=== PATIENT | male | born 1945 ===

== ENCOUNTER 2017-12-09 08:47 | Day surgery (SDC) | payer MEDICARE ==
[2017-11-27 08:08] VITALS: BMI 24.8
[2017-12-09] MEDS ORDERED: Propofol 10 mg/ml Inj (20 ML) ONE (09:59)
[2017-12-09] MEDS ORDERED: Midazolam 2 MG/2 ML VIAL ONE (10:00)
[2017-12-09] MEDS ORDERED: Bupivacaine 0.5% Inj(30mL) ONE (10:16)
[2017-12-09] MEDS ORDERED: Lidocaine 1% Inj (20ml) ONE (10:16)
[2017-12-09] MEDS ORDERED: Lidocaine 2% Inj (20ml) ONE (10:34)
[2017-12-09] MEDS ORDERED: HYDROmorphone 0.5 mg/0.5 ml ISec IVP PRN (11:14)
[2017-12-09] MEDS ORDERED: Lactated Ringer's 1,000 ML IV SCH (11:15)
--- NOTE | 2017-12-09 11:23 | PCM.SURG1 ---
Surgeon's Initial Post Op Note - Surgeon's Notes Surgeon: Dr. Resendiz Straightening Press Operator Helper: [place]ford PGY1 Type of Anesthesia: IV Sedation, Local Anesthesia Administered By: Dr. Zhu Pre-Operative Diagnosis: Right Back mass Operative Findings: Large Right upper back lipoma Post-Operative Diagnosis: same Operation Performed: Excision of right upper back lipoma Specimen/Specimens Removed: Right upper back lipoma Estimated Blood Loss: EBL {In ML}: 20 Blood Products Given: N/A Drains Used: No Drains Post-Op Condition: Good Date of Surgery/Procedure: 12/09/17 Time of Surgery/Procedure: 11:23
[2017-12-09 11:59] VITALS: RESP 20; TEMP 98
[2017-12-09 12:54] VITALS: BP 132/69; PULSE 70; O2SAT 94
--- NOTE | 2018-01-15 07:22 | OP ---
PROCEDURE DATE: 12/09/2017 He is admitted and operated on the same-day. SURGEON: Kael Resendiz MD SELVAGE MACHINE OPERATOR: Yefri Christina DO, PGY-1 COOK SUPERVISOR: Dr. Zhu. ANESTHESIA: MAC IV sedation-bupivacaine 0.5-lidocaine 1% equal amounts 60 mL mix, 30 mL utilized. PREOPERATIVE DIAGNOSES: A 10-cm mass of the posterior back on the right side, rule out lipoma. PREOPERATIVE DIAGNOSES: A 10-cm mass of the posterior back on the right side, rule out lipoma. PROCEDURE: 1. Excision of a 10-cm lipoma of the back. 2. Intermediate layered closure of 15 cm. 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 He is been referred by his private physician for removal of same and after explaining the risks, the benefits, the alternatives and their anticipated outcomes he signs the informed consent for the same day surgical procedure. OPERATIVE NOTE: The patient was brought to the operating room from the same day holding area. He is identified by his wrist band, undergoes appropriate time-out procedure and then is placed on the operative table in a supine manner. Following light intravenous analgesia and oxygenation monitoring with the patient in a right lateral Romero position, the back is then prepped with Hibiclens and chlorhexidine preparation and then aseptically draped. Field block infiltration utilizing the combination of lidocaine-bupivacaine was employed over the very large lesion in the back and incision made transversely with electrocoagulating current for hemostatic purposes. The lesion is felt in the subcutaneous space, adhesions were sharply lysed and additional infiltration employed where needed. Utilizing a blunt technique of freeing the lipoma, it is brought up into the incision and it is found to have a secondary lobulation approximately 50% the size of the first one attached firmly and these adhesions were sharply lysed with cautery at the depth of the wound. The specimen is a lipoma and is submitted to pathology in formalin for permanent section analysis and confirmation. The wound is now inspected for hemostasis and electrocoagulating cautery utilized where necessary. The wound was lavaged with saline. Aspiration is noted to be clear and the wound was approximated in multiple layers using 3-0 Polysorb for the subcutaneous tissues and AutoSuture skin stapler for the skin. Several retention sutures were placed with #1 Novafil in a vertical mattress form to provide long-term approximation of this very large defect after the skin rolf were removed. The patient was then awakened, transported to the recovery room in a satisfactory condition. Sponge, instrument and suture count were verified as correct at the end of the procedure. Estimated blood loss during this procedure was less than 50 mL of blood. The surgical assistants were present throughout the procedure and were absolutely essential in the dissection and exploration and exposure of this very large tumor. This dictation will be electronically signed without being read. Kael Resendiz MD
== END 2017-12-09 13:10 | disposition home or self-care (01) ==
LOC: SDS 08:47
PROVIDERS: ATTEND Surgery
DX: D17.1 Benign lipomatous neoplasm of skin and subcutaneous tissue of trunk (principal)
CPT/HCPCS: 12035; 21931; 88304; J0690; J1170; J2250; J2704; J3010; J7120 ×2